=== PATIENT | female | born 1995 | race Two or more races ===

== ENCOUNTER 2017-03-28 11:22 | Emergency (ER) | payer SELFPAY ==
[2017-03-28 11:31] VITALS: RESP 18; TEMP 99.5
--- NOTE | 2017-03-28 11:42 | EDPHY ---
H & P Time Seen by Provider: 03/28/17 11:24 HPI/ROS: This patient complains of sinus pain the right maxillary sinus region after 10- 14 days of nasal congestion. The pain developed over the past 48 hr with low- grade fevers. She also reports a cough over the same period of time that is now productive of yellow sputum. Finally, she reports bilateral ear pressure with changes in altitude but currently no ear pain. She drove herself here by private vehicle for evaluation of the symptoms. She has had minimal improvement from [id number] analgesics with no other exacerbating factors. ROS: No fevers or chills. No other constitutional symptoms HEENT: As per HPI. No sore throat. Pulmonary: Mild shortness of breath with no pleuritic pain or wheezing. Cardiovascular: No chest pain. No lightheadedness. GI: No nausea vomiting abdominal pain or diarrhea 7 point ROS is otherwise negative Smoking Status: Never smoked Physical Exam: Physical Exam Vital signs are normal except for mild tachycardia. General: No acute distress HEENT: Nose: yellow d/c bilaterally with swollen nasal mucosa on right maxillary sinus tenderness to percussion. Ears: External canals and tympanic membranes are clear with no erythema or abnormal findings bilaterally. Oropharynx: No erythema or exudates. No dysphonia. No drooling or stridor. Eyes: Pupils equal and react to light. Extraocular motions are intact. Neck: Supple with no meningismus. No lymphadenopathy Lungs: Clear to auscultation bilaterally with no rales, rhonchi or wheeze. No respiratory distress. Cardiac: Regular rate and rhythm with no murmur gallop or rub Skin: No rash or pallor. Neuro: Alert with no focal deficits noted. Initial differential diagnosis: Bacterial sinusitis, viral rhinosinusitis, URI with cough, mild bronchitis, doubt pneumonia given lack of suggestive findings. Constitutional: Initial Vital Signs Temperature (C) 37.5 C 03/28/17 11:26 Heart Rate 122 H 03/28/17 11:26 Respiratory Rate 18 03/28/17 11:26 Blood Pressure 127/86 H 03/28/17 11:26 O2 Sat (%) 94 03/28/17 11:26 O2 Delivery Mode Room Air Allergies/Adverse Reactions: No Known Allergies Allergy (Verified 03/28/17 11:31) Home Medications: Medication Instructions Recorded Albuterol Hfa Anes Only [Proair 2 puffs IH Q4 PRN #1 mdi 03/28/17 Hfa Icu (*)] Azithromycin [Zithromax] 250 mg PO DAILY #6 tab 03/28/17 Benzonatate [Tessalon Pearles (RX)] 100 - 200 mg PO TID PRN #20 cap 03/28/17 Fluticasone Nasal [Flonase Nasal 2 sprays NASAL DAILY #1 mdi 03/28/17 [place]] MDM/Departure - [facility] ED Course/Re-evaluation: Discussion: Sinusitis with cough. No clinical evidence to suggest lower respiratory infection, sinusitis other concerning findings. - Depart Disposition: Home, Routine, Self-Care Clinical Impression: Cough Acute sinusitis Qualifiers: Sinusitis location: maxillary Recurrence: non-recurrent Qualified Code(s): J01.00 - Acute maxillary sinusitis, unspecified Condition: Good Instructions: Sinusitis (ED) Additional Instructions: Diagnosis: Acute sinusitis 2. Cough Plan: Humidifier Albuterol inhaler for cough, wheeze or shortness of breath Flonase steroid nasal spray diminish nasal congestion Zithromax antibiotic Tessalon Perles as a cough suppressant if needed Symptoms should gradually improve over the next 2-7 days. Return for any significant worsening despite the treatment plan. Follow up with primary care physician for any ongoing symptoms. Stand Alone Forms: Work Excuse Prescriptions: Albuterol Hfa Anes Only [Proair Hfa Icu (*)] 2 puffs IH Q4 PRN #1 mdi PRN Reason: Wheezing Azithromycin [Zithromax] 250 mg PO DAILY #6 tab Benzonatate [Tessalon Pearles (RX)] 100 - 200 mg PO TID PRN #20 cap PRN Reason: cough Fluticasone Nasal [Flonase Nasal [place]] 2 sprays NASAL DAILY #1 mdi Referrals: NONE *PRIMARY CARE P,. [Primary Care Provider] - As per Instructions
[2017-03-28 11:53] VITALS: BP 122/62; PULSE 74; O2SAT 96
== END 2017-03-28 11:47 | disposition home or self-care (01) ==
LOC: CED 11:22
DX: J01.00 Acute maxillary sinusitis, unspecified (principal)